=== PATIENT | male | born 1950 | race Caucasian/White ===

== ENCOUNTER 2018-05-17 04:20 | Emergency (ER) | payer OTHER ==
[~2018-05-17] VITALS: Ht 177.8 cm; Wt 100.0 kg
[2018-05-17] MEDS ORDERED: FUROSEMIDE 40MG/4ML VIAL IV ONE (05:00)
[2018-05-17] MEDS ORDERED: NITROGLYCERIN OINT 1GM/INCH UDPKT TD ONE (05:00)
[2018-05-17 05:31] LABS: BASOPHILS % 0.3 % (0.0-2.0); EOSINOPHILS % 0.5 % (0.0-5.0); HEMATOCRIT. 33.3 % (42.0-52.0); HEMOGLOBIN. 10.2 g/dL (14.0-18.0); LYMPHOCYTES % 25.4 % (20.0-50.0); MEAN CORPUSCULAR HEMOGLOBIN 26.4 pg (28.0-32.0); MEAN CORPUSCULAR VOLUME 86.1 fL (80.0-94.0); MONOCYTES % 5.8 % (2.0-8.0); PLATELET 182 x1000/uL (130-400); RED BLOOD CELL COUNT 3.87 mill/uL (4.7-6.1)
[2018-05-17 05:36] LABS: CHLORIDE 105 mEq/L (98-107)
[2018-05-17 06:17] LABS: INR 1.4; PARTIAL THROMBOPLASTIN TIME 44.5 sec (23.4-31.0)
[2018-05-17 08:04] LABS: PLATELET ESTIMATE NORMAL
[2018-05-17 11:24] VITALS: BP 111/85
== END 2018-05-17 12:59 | disposition short-term general hospital (02) ==
LOC: ER 04:20 → CANBEDREQ 10:34 → ER 12:59
DX: J90 Pleural effusion, not elsewhere classified (principal); C22.8 Malignant neoplasm of liver, primary, unspecified as to type; D64.9 Anemia, unspecified; E87.6 Hypokalemia; I50.9 Heart failure, unspecified; R00.0 Tachycardia, unspecified; J98.11 Atelectasis; R14.0 Abdominal distension (gaseous); Z51.5 Encounter for palliative care
CPT/HCPCS: 36415; 71045; 80053; 83690; 83880; 84484; 85025; 85610; 85730; 93005; 96374; 99285; J1940